=== PATIENT | male | born 1950 | race Caucasian/White ===

== ENCOUNTER 2017-01-31 09:24 | Outpatient (CLI) | payer MEDICARE, OTHER ==
[2017-01-31 13:13] LABS: BASOPHILS % (AUTO) 0.9 %; EOSINOPHILS # (AUTO) 0.2 10^3/uL (0.0-0.7); EOSINOPHILS % (AUTO) 4.6 %; HCT - HEMATOCRIT 45.4 % (42.0-52.0); HGB - HEMOGLOBIN 15.4 g/dL (14.0-18.0); LYMPHOCYTES # (AUTO) 1.4 10^3/uL (1.5-3.5); LYMPHOCYTES % (AUTO) 25.9 %; MEAN CORPUSCULAR HEMOGLOBIN 30.3 pg (27.0-31.0); MEAN CORPUSCULAR HGB CONC 34.1 g/dL (32.0-36.0); MEAN CORPUSCULAR VOLUME 88.9 fL (80.0-94.0); MEAN PLATELET VOLUME 8.5 fL (7.4-11.4); MONOCYTES # (AUTO) 0.5 10^3/uL (0.0-1.0); MONOCYTES % (AUTO) 8.6 %; NEUTROPHILS # (AUTO) 3.2 10^3/uL (1.5-6.6); RED CELL DISTRIBUTION WIDTH 13.4 % (12.0-15.0); UNCORRECTED WHITE BLOOD COUNT 5.4 x10^3/uL; WHITE BLOOD COUNT 5.4 x10^3/uL (4.8-10.8)
[2017-01-31 13:37] LABS: ALBUMIN/GLOBULIN RATIO 1.4 (1.0-2.2); BILIRUBIN,TOTAL 0.8 mg/dL (0.2-1.0); BUN - BLOOD UREA NITROGEN 11 mg/dL (6-20); CALCIUM 9.1 mg/dL (8.5-10.3); CARBON DIOXIDE - CO2 24 mmol/L (21-32); CHLORIDE 109 mmol/L (101-111); CHOL/HDL RATIO 5.9 (<5.0); CHOLESTEROL 235 mg/dL; CREATININE 0.5 mg/dL (0.6-1.2); GFR - MDRD 166 (>89); GLUCOSE 103 mg/dL (70-100); HDL CHOLESTEROL 40 mg/dL; LDL/HDL RATIO 4.3 (<3.6); POTASSIUM 3.9 mmol/L (3.5-5.0); SODIUM 139 mmol/L (135-145); TOTAL PROTEIN 7.3 g/dL (6.7-8.2); TRIGLYCERIDES 114 mg/dL; VLDL CHOLESTEROL 23 mg/dL
== END 2017-01-31 09:25 | disposition home or self-care (01) ==
LOC: LAB.WCP 09:24
PROVIDERS: ATTEND Family Medicine
DX: I10 Essential (primary) hypertension (principal); R68.82 Decreased libido; E78.9 Disorder of lipoprotein metabolism, unspecified; Z12.5 Encounter for screening for malignant neoplasm of prostate
CPT/HCPCS: 36415; 80053; 80061; 84153; 85025

== ENCOUNTER 2017-09-30 08:00 | Outpatient (CLI) | payer MEDICARE, OTHER ==
[2017-09-30 12:47] LABS: ALBUMIN 4.1 g/dL (3.2-5.5); ALBUMIN/GLOBULIN RATIO 1.4 (1.0-2.2); ALKALINE PHOSPHATASE 59 IU/L (42-121); ALT ALANINE AMINOTRANSFERASE 27 IU/L (10-60); AST ASPARTATE AMINOTRANSFERASE 24 IU/L (10-42); BILIRUBIN,TOTAL 1.1 mg/dL (0.2-1.0); BUN - BLOOD UREA NITROGEN 15 mg/dL (6-20); CALCIUM 9.1 mg/dL (8.5-10.3); CARBON DIOXIDE - CO2 25 mmol/L (21-32); CHLORIDE 105 mmol/L (101-111); CHOL/HDL RATIO 4.5 (<5.0); CHOLESTEROL 156 mg/dL; CREATININE 0.6 mg/dL (0.6-1.2); GFR - MDRD 134 (>89); GLUCOSE 98 mg/dL (70-100); HDL CHOLESTEROL 35 mg/dL; LDL CHOLESTEROL,CALCULATED 99 mg/dL; LDL/HDL RATIO 2.8 (<3.6); SODIUM 136 mmol/L (135-145); VLDL CHOLESTEROL 22 mg/dL
== END 2017-09-30 08:01 | disposition home or self-care (01) ==
LOC: LAB.WCP 08:00
PROVIDERS: ATTEND Family Medicine
DX: E78.5 Hyperlipidemia, unspecified (principal)
CPT/HCPCS: 36415; 80053; 80061; 83721

== ENCOUNTER 2018-10-20 08:50 | Outpatient (CLI) | payer MEDICARE, OTHER ==
[2018-10-20 13:23] LABS: BASOPHILS # (AUTO) 0.1 10^3/uL (0.0-0.1); EOSINOPHILS # (AUTO) 0.3 10^3/uL (0.0-0.7); EOSINOPHILS % (AUTO) 5.4 %; LYMPHOCYTES # (AUTO) 1.6 10^3/uL (1.5-3.5); LYMPHOCYTES % (AUTO) 27.1 %; MEAN CORPUSCULAR HEMOGLOBIN 30.4 pg (27.0-31.0); MEAN CORPUSCULAR HGB CONC 32.6 g/dL (32.0-36.0); MEAN CORPUSCULAR VOLUME 93.3 fL (80.0-94.0); MEAN PLATELET VOLUME 10.4 fL (7.4-11.4); MONOCYTES # (AUTO) 0.5 10^3/uL (0.0-1.0); MONOCYTES % (AUTO) 9.3 %; NEUTROPHILS # (AUTO) 3.3 10^3/uL (1.5-6.6); NEUTROPHILS % (AUTO) 56.9 %; PLT - PLATELET COUNT 268 10^3/uL (130-450); RED BLOOD COUNT 4.93 10^6/uL (4.70-6.10); RED CELL DISTRIBUTION WIDTH 13.6 % (12.0-15.0); WHITE BLOOD COUNT 5.8 x10^3/uL (4.8-10.8)
[2018-10-20 14:00] LABS: ALBUMIN 4.2 g/dL (3.2-5.5); ALBUMIN/GLOBULIN RATIO 1.5 (1.0-2.2); ALKALINE PHOSPHATASE 63 IU/L (42-121); ALT ALANINE AMINOTRANSFERASE 28 IU/L (10-60); AST ASPARTATE AMINOTRANSFERASE 22 IU/L (10-42); BILIRUBIN,TOTAL 0.9 mg/dL (0.2-1.0); BUN - BLOOD UREA NITROGEN 14 mg/dL (6-20); CALCIUM 9.2 mg/dL (8.5-10.3); CARBON DIOXIDE - CO2 22 mmol/L (21-32); CHLORIDE 107 mmol/L (101-111); CHOL/HDL RATIO 4.2 (<5.0); CHOLESTEROL 175 mg/dL; CREATININE 0.6 mg/dL (0.6-1.2); GFR - MDRD 134 (>89); GLUCOSE 105 mg/dL (70-100); HDL CHOLESTEROL 42 mg/dL; LDL CHOLESTEROL,CALCULATED 103 mg/dL; LDL/HDL RATIO 2.5 (<3.6); SODIUM 138 mmol/L (135-145); VLDL CHOLESTEROL 30 mg/dL
== END 2018-10-20 08:51 | disposition home or self-care (01) ==
LOC: LAB.WCP 08:50
PROVIDERS: ATTEND Family Medicine
DX: I10 Essential (primary) hypertension (principal); Z79.891 Long term (current) use of opiate analgesic; E78.5 Hyperlipidemia, unspecified
CPT/HCPCS: 36415; 80053; 80061; 83721; 85025

== ENCOUNTER 2019-11-08 11:02 | Outpatient (CLI) | payer MEDICARE, OTHER ==
[2019-11-08 18:15] LABS: BASOPHILS % (AUTO) 0.6 %; EOSINOPHILS # (AUTO) 0.2 10^3/uL (0.0-0.7); EOSINOPHILS % (AUTO) 3.7 %; HGB - HEMOGLOBIN 14.5 g/dL (14.0-18.0); LYMPHOCYTES # (AUTO) 1.2 10^3/uL (1.5-3.5); LYMPHOCYTES % (AUTO) 18.6 %; MEAN CORPUSCULAR HEMOGLOBIN 28.9 pg (27.0-31.0); MEAN CORPUSCULAR HGB CONC 32.7 g/dL (32.0-36.0); MEAN CORPUSCULAR VOLUME 88.4 fL (80.0-94.0); MEAN PLATELET VOLUME 10.3 fL (7.4-11.4); MONOCYTES # (AUTO) 0.5 10^3/uL (0.0-1.0); MONOCYTES % (AUTO) 8.3 %; NEUTROPHILS # (AUTO) 4.4 10^3/uL (1.5-6.6); NEUTROPHILS % (AUTO) 68.6 %; PLT - PLATELET COUNT 332 10^3/uL (130-450); RED BLOOD COUNT 5.01 10^6/uL (4.70-6.10); RED CELL DISTRIBUTION WIDTH 13.8 % (12.0-15.0); WHITE BLOOD COUNT 6.4 x10^3/uL (4.8-10.8)
== END 2019-11-08 23:59 | disposition home or self-care (01) ==
LOC: LAB.WCP 11:02
PROVIDERS: ATTEND Family Medicine
DX: D51.0 Vitamin B12 deficiency anemia due to intrinsic factor deficiency (principal)
CPT/HCPCS: 36415; 82607; 85025

== ENCOUNTER 2020-10-22 22:15 | Emergency (ER) | payer MEDICARE, OTHER ==
--- NOTE | 2020-10-22 23:05 | ED Physician Documentation ---
PD HPI ABD PAIN - Stated complaint Stated Complaint: CONSTIPATED - Chief complaint Chief Complaint: Abd Pain - History obtained from History obtained from: Patient - History of Present Illness Timing - onset: How many days ago (5) Timing - details: Gradual onset Pain level now: 3 Quality: Cramping Location: Periumbilical Associated symptoms: Constipation. No: Fever, Nausea, Vomiting - Additional information Additional information: c/o constipation, last BM 5-6 days ago. he takes prescribed opiates on regular basis for pain related to esophageal cancer. he has tried dulcolax, senna, fleets enema, and miralax without results Review of Systems Constitutional: reports: Reviewed and negative GI: reports: Abdominal Pain, Constipation. denies: Abdominal Swelling, Nausea, Vomiting : denies: Dysuria, Frequency Musculoskeletal: denies: Back pain PD PAST MEDICAL HISTORY - Past Medical History Cardiovascular: Hypertension, High cholesterol Respiratory: None Endocrine/Autoimmune: None GI: None : Other HEENT: None Psych: None Musculoskeletal: None Derm: None - Past Surgical History General: Colonoscopy, Other - Present Medications Home Medications: Ambulatory Orders Medication Instructions Recorded Confirmed Simvastatin 1 tab PO DAILY 01/28/16 10/22/20 lisinopriL [Lisinopril] 1 tab PO DAILY 01/28/16 10/22/20 Calcium Carbonate [Tums (Calcium 500 mg PO PRN PRN 10/22/20 10/22/20 Carbonate 500mg)] Famotidine [Pepcid] 20 mg PO BID 10/22/20 10/22/20 Metoclopramide [Reglan] 10 mg PO PRN PRN 10/22/20 10/22/20 Ondansetron Odt [Zofran Odt] 4 mg PO PRN PRN 10/22/20 10/22/20 Pantoprazole [Protonix] 40 mg PO DAILY 10/22/20 10/22/20 Rosuvastatin Calcium [Crestor] 40 mg PO DAILY 10/22/20 10/22/20 Triamcinolone 0.1% Cream [Kenalog 1 applic TOP PRN PRN 10/22/20 10/22/20 0.1% Cream] hydrOXYzine HCL [Hydroxyzine HCl] 25 mg PO DAILY 10/22/20 10/22/20 oxyCODONE/ACET 5/325 [Percocet 5 1 each PO Q4-6H 10/22/20 10/22/20 mg/325 mg] polyethylene glycoL 3350 [Miralax] 17 g PO PRN PRN 10/22/20 10/22/20 - Allergies Allergies/Adverse Reactions: Allergies Allergy/AdvReac Type Severity Reaction Status Date / Time No Known Drug Allergies Allergy Verified 10/22/20 22:34 PD ED PE NORMAL - Vitals Vital signs reviewed: Yes - General General: Alert and oriented X 3, No acute distress, Well developed/nourished - Abdomen Abdomen: Soft, Non tender, Non distended - Derm Derm: Normal color, Warm and dry, No rash PD ED PE EXPANDED - Abdomen Abdomen: Decreased BS Results - Vitals Vitals: Oxygen O2 Source Room air - Rads (name of study) acute abdominal series Radiology: Prelim report reviewed, See rad report PD MEDICAL DECISION MAKING - ED course Complexity details: reviewed results, re-evaluated patient, considered differential, d/w patient ED course: no BM during ED stay after fleets enema followed by soap suds enema. he is in NAD during ED stay, is comfortable with d/c home with magnesium citrate and glycerin suppository. he is to return to ED if worse Departure - Departure Disposition: 01 Home, Self Care Clinical Impression: Constipation Condition: Good Instructions: ED Constipation Follow-Up: Wilver Martinez DO [Primary Care Provider] - Within 3 Days Discharge Date/Time: 10/23/20 02:45
[2020-10-23] MEDS ORDERED: SALINE ENEMA 133 ML BOTTLE RC STA (00:46)
[2020-10-23 01:04] VITALS: BP 172/106
[2020-10-23] MEDS ORDERED: SOAP SUDS ENEMA 1 EACH RC STA (01:15)
[2020-10-23] MEDS ORDERED: GLYCERIN ADULT SUPP PR STA (02:38)
[2020-10-23] MEDS ORDERED: MAGNESIUM CITRATE 296 ML BOTTLE PO STA (02:39)
--- NOTE | 2020-10-23 09:33 | XRAY Report ---
PROCEDURE: Abdomen Acute INDICATIONS: abd. pain TECHNIQUE: One view chest and two views of the abdomen were acquired. COMPARISON: None FINDINGS: Surgical changes and devices: None. Chest: There is increased opacity in the retrocardiac region. Heart size is enlarged. Mild left pl eural effusions. No pneumoperitoneum. Abdomen: Bowel gas pattern is normal. Moderate stool is present. No suspicious calcifications. Vis ualized solid organ contours appear normal. Bones: No suspicious bony lesions. IMPRESSION: 1. Mild left effusion with retrocardiac opacity. The latter could represent fluid and/or developing atelectasis/pneumonia. 2. Moderate stool without obstruction. Reviewed by: Eilana Resendez MD on 10/23/2020 9:32 AM PDT Approved by: Eliana Resendez MD on 10/23/2020 9:32 AM PDT Station ID: [id number]
== END 2020-10-23 02:45 | disposition home or self-care (01) ==
LOC: ED 22:15
DX: K59.00 Constipation, unspecified (principal); Z79.891 Long term (current) use of opiate analgesic; G89.3 Neoplasm related pain (acute) (chronic); C15.9 Malignant neoplasm of esophagus, unspecified; I10 Essential (primary) hypertension
CPT/HCPCS: 74022; 99283; A9270